=== PATIENT | female | born 1975 | race Caucasian/White ===

== ENCOUNTER 2017-09-16 09:59 | Day surgery (SDC) | payer BC ==
[~2017-09-16] VITALS: Ht 154.9 cm; Wt 68.1 kg
[~2017-09-16 09:59] MED LIST: ADVIL200 MG PO; MIRENA1 EACH IY
[2017-09-16 10:57] VITALS: BP 113/68
[2017-09-16] MEDS ORDERED: NORCO 5/3251 TABLET PO (13:00)
[2017-09-16] MEDS ORDERED: MOTRIN800 MG PO (13:00)
[2017-09-16 14:00] VITALS: BP 135/63
[2017-09-16 14:30] VITALS: BP 123/61
== END 2017-09-16 14:45 | disposition home or self-care (01) ==
LOC: SDC 09:59
DX: T83.32XA Displacement of intrauterine contraceptive device, initial encounter (principal); Z30.8 Encounter for other contraceptive management; Z53.09 Procedure and treatment not carried out because of other contraindication
CPT/HCPCS: J1100; J1885; J2250; J2405; J3010

== ENCOUNTER 2017-11-01 05:42 | Day surgery (SDC) | payer BC ==
[~2017-11-01] VITALS: Ht 154.9 cm; Wt 68.0 kg
[~2017-11-01 05:42] MED LIST changes: +MOTRIN800 MG PO; +NORCO 5/3251 TABLET PO
[2017-11-01 06:08] VITALS: BP 113/71
[2017-11-01] MEDS ORDERED: NORCO 5/3251 TABLET PO (08:44)
[2017-11-01 09:38] VITALS: BP 111/82
== END 2017-11-01 10:40 | disposition home or self-care (01) ==
LOC: SDC 05:42
PROC: 0U574ZZ Destruction of Bilateral Fallopian Tubes, Percutaneous Endoscopic Approach (ICD-10-PCS; principal; 2017-11-01)
DX: Z30.2 Encounter for sterilization (principal)
CPT/HCPCS: J1100; J1170; J1885; J2405; J2710; J3010; J7643; Q0175; S0020